=== PATIENT | male | born 1990 | race African-American/Black ===

== ENCOUNTER 2020-07-03 00:25 | Emergency (ER) | payer BC, OTHER ==
[2020-07-03 00:58] VITALS: BP 129/74; PULSE 88; TEMP 98.6; BMI 23.0
[2020-07-03] MEDS ORDERED: AZITHROMYCIN 500 MG TABLET PO ONE (02:41)
[2020-07-03 03:05] LABS: EPI CELLS 2 /uL (0-25.1); HYALINE CASTS 2 /uL (0-3.1); URINE APPEARANCE CLOUDY; URINE BACTERIA 134 /uL (0-1359); URINE BILIRUBIN NEGATIVE (NEGATIVE); URINE COLOR YELLOW; URINE GLUCOSE (UA) NEGATIVE (NEGATIVE); URINE KETONE 1+ (NEGATIVE); URINE LEUK ESTERASE 3+ (NEGATIVE); URINE NITRITE NEGATIVE (NEGATIVE); URINE PROTEIN TRACE (NEGATIVE); URINE RBC 35 /uL (0-23.9); URINE WBC 2381 /uL (0-25.8)
[2020-07-03] MEDS ORDERED: cefTRIAXone SODIUM 1 GM VIAL ONE (03:09)
[2020-07-03] MEDS ORDERED: LIDOCAINE HCL 1%, 10 MG/ML (20ML VIAL) ONE (03:09)
[2020-07-03] MEDS ORDERED: AZITHROMYCIN 250 MG TABLET ONE (03:09)
== END 2020-07-03 03:48 | disposition home or self-care (01) ==
LOC: JER 00:25
DX: Z20.2 Contact with and (suspected) exposure to infections with a predominantly sexual mode of transmission (principal)
CPT/HCPCS: 36415; 81003; 86780; 87086; 87389; 87491; 87591; 99284-25

== ENCOUNTER 2021-02-12 21:32 | Emergency (ER) | payer BC, OTHER ==
[2021-02-12 21:55] VITALS: BP 132/84; PULSE 85; TEMP 98.2; BMI 30.1
[2021-02-13] MEDS ORDERED: AZITHROMYCIN 500 MG TABLET PO ONE
[2021-02-13] MEDS ORDERED: AZITHROMYCIN 250 MG TABLET ONE (00:15)
[2021-02-13] MEDS ORDERED: CEFTRIAXONE 1 GM/50 ML BAG ONE (00:16)
[2021-02-13 01:29] LABS: HIV INTERPRETATION NEGATIVE (NEGATIVE)
[2021-02-13 02:23] LABS: PH,URINE 5.5 (5.0-8.0); URINE APPEARANCE CLEAR; URINE BILIRUBIN NEGATIVE (NEGATIVE); URINE COLOR DK YELLOW; URINE GLUCOSE (UA) NEGATIVE (NEGATIVE); URINE KETONE TRACE (NEGATIVE); URINE LEUK ESTERASE NEGATIVE (NEGATIVE); URINE NITRITE NEGATIVE (NEGATIVE); URINE PROTEIN NEGATIVE (NEGATIVE)
== END 2021-02-13 00:42 | disposition home or self-care (01) ==
LOC: JER 21:32
DX: Z11.3 Encounter for screening for infections with a predominantly sexual mode of transmission (principal)
CPT/HCPCS: 36415; 81003; 86780; 87086; 87389; 87491; 87591; 99284-25

== ENCOUNTER 2021-11-18 10:02 | Emergency (ER) | payer BC, OTHER ==
[2021-11-18 10:18] VITALS: BP 121/56; PULSE 18; TEMP 98.2; BMI 29.5
[2021-11-18] MEDS ORDERED: DOXYCYCLINE HYCLATE 100 MG CAPSULE PO ONE ×2 (10:32→10:47)
[2021-11-18] MEDS ORDERED: cefTRIAXone SODIUM 1 GM VIAL ONE (10:47)
== END 2021-11-18 11:17 | disposition home or self-care (01) ==
LOC: JERFT 10:02
PROC: 3E023GC Introduction of Other Therapeutic Substance into Muscle, Percutaneous Approach (ICD-10-PCS; principal; 2021-11-18)
DX: Z20.2 Contact with and (suspected) exposure to infections with a predominantly sexual mode of transmission (principal)
CPT/HCPCS: 36415; 87491; 87591; 99284-25

== ENCOUNTER 2024-11-22 15:39 | Emergency (ER) | payer OTHER ==
[2024-11-22 15:44] VITALS: BP 124/90; PULSE 106; RESP 20; TEMP 98.4; BMI 32.5
== END 2024-11-22 18:30 | disposition home or self-care (01) ==
LOC: JERFT 15:39
DX: S93.602A Unspecified sprain of left foot, initial encounter (principal); X50.1XXA Overexertion from prolonged static or awkward postures, initial encounter
CPT/HCPCS: 73610-TC-LT-FY; 73630-TC-LT; 99283-25